=== PATIENT | female | born 1995 | race Caucasian/White ===

== ENCOUNTER → 2017-04-04 | Outpatient (CLI) | payer MEDICAID ==
--- NOTE | 2017-04-04 23:34 | RADRPT ---
PROCEDURE: XR Chest. CLINICAL INDICATION: Positive PPD. 8 months . TECHNIQUE: 2 views. Frontal and lateral. COMPARISON: None. FINDINGS: The lung apices are not completely included on the frontal view. The visualized portions of the ko gs are clear. The heart size is normal. There is no pleural effusion. There is no pneumothorax. IMPRESSION: 1. No evidence of active tuberculosis. 2. Lung apices not completely included on the frontal view. 3. Otherwise unremarkable chest radiograph. RPTAT: QQ .Marc Gupta MD, MD Date Time Electronically viewed and signed by .Marc Gupta MD, MD on 04/04/2017 23:34 .R/
== END | disposition home or self-care (01) ==
LOC: LAB 15:10
PROVIDERS: ATTEND Obstetrics & Gynecology
DX: O26.893 Other specified pregnancy related conditions, third trimester (principal); R76.11 Nonspecific reaction to tuberculin skin test without active tuberculosis
CPT/HCPCS: 71020